=== PATIENT | male | born 1995 | race Caucasian/White ===

== ENCOUNTER 2020-01-12 20:40 | Emergency (ER) | payer BC, SELFPAY ==
[2020-01-12 20:45] VITALS: BP 111/78; PULSE 98; RESP 18; TEMP 38.1; O2SAT 98
--- NOTE | 2020-01-12 20:49 | ED_ITS ---
HPI - General Adult General Chief complaint: Upper Respiratory Symptoms Stated complaint: fever, states white spots on tonsils Time Seen by Provider: 01/12/20 20:48 History of Present Illness HPI narrative: 24-year-old otherwise healthy gentleman who has had an increasing sore throat and headache for the last 48 hours. Today he noticed there is a bit of exudate over his tonsils and came in for additional evaluation. Review of Systems Review of Systems Narrative: Positive for fevers, cough, headache Denies ? chest pain ? dyspnea ? wheezing ? abdominal pain ? change to bowel or bladder habits ? nausea vomiting ? skin changes ? rashes Patient History Medical History (Updated 01/12/20 @ 21:31 by Kourtney Valdes MD) Healthy adult (Acute) Social History Smoking Status: Current every day smoker Exam Narrative Exam Narrative: General: Healthy appearing, in no acute distress. Able to give a complete and coherent history. Well-nourished well-developed HEENT: Moist mucous membranes, normal sclera with reactive pupils, erythematous tonsils with minor amount of white exudate bilaterally, no peritonsillar abscess Neck: Minor cervical adenopathy, supple Respiratory: Lungs are clear to auscultation, no wheezing no rales no rhonchi. Full and symmetrical air movement Cardiac: Regular rate and rhythm no murmurs no bruits Abdomen: Soft nontender good bowel tones, no flank pain Skin: Warm and dry, no rashes Neurologic: Grossly neurologically intact with no obvious asymmetries or abnormalities Psych: Cooperative, appropriate insight and affect Initial Vital Signs Initial Vital Signs: Vital Signs Temperature 100.6 F H 01/12/20 20:45 Pulse Rate 98 H 01/12/20 20:45 Respiratory Rate 18 01/12/20 20:45 Blood Pressure 111/78 01/12/20 20:45 Pulse Oximetry 98 01/12/20 20:45 Course Vital Signs Vital signs: Vital Signs - 8 hr 01/12/20 20:45 Temperature 100.6 F H Pulse Rate 98 H Respiratory Rate 18 Blood Pressure 111/78 Pulse Oximetry 98 Medical Decision Making Medical Records Medical records reviewed: Yes I reviewed the patient's medical records. Lab Data Lab results reviewed: Yes I reviewed the patient's lab results. Labs: Point of Care Testing Rapid Strep A Negative Point of care testing: Point of Care Testing Rapid Strep A Negative MDM Narrative Medical decision making narrative: 48 hours of sore throat most consistent with viral pharyngitis. Rapid strep is negative. Covid19 testing is done. patient is safe for discharge Discharge Plan Departure Patient Disposition: Home Clinical Impression: Pharyngitis Qualifiers: Pharyngitis/tonsillitis etiology: unspecified etiology Qualified Code(s): J02.9 - Acute pharyngitis, unspecified Instructions: DI for Viral Pharyngitis Activity Restrictions/Additional Instructions: Thank you for coming in today Here rapid strep test was negative. You clearly do have enlarged tonsils and swollen lymph nodes. This is most likely a viral pharyngitis. There have been reports of coronavirus presenting with headache and sore throat so you have been tested for this. You will get a call when we have results back. In the meantime using 400 mg of ibuprofen (2 [id number] pills) and 1 Tylenol every 6 hours can be very helpful in controlling pain. CDC Guidelines for home isolation: - Stay away from others - Limit contact with pets and animals: If you must care for a pet, wash your hands before and after interacting with them - Wear a mask if you are sick - Cover your mouth and nose with a tissue when you cough or sneeze. Dispose of tissues in a lined trash can and wash your hands immediately with soap and water for at least 20 seconds. If soap and water are not available, clean hands with alcohol-based hand oil and gas well treatment operator that contains at least 60% alcohol. - Clean your hands often with soap and water for at least 20 seconds - Avoid touching your eyes, nose and mouth with unwashed hands - Do not share dishes, drinking glasses, cups, eating utensils, towels, or bedding with other people in your home. After using these items, wash them thoroughly with soap and water or put in the gas plant operator. - Clean high-touch surfaces in your isolation area (?sick room? and bathroom) every day; let a caregiver clean and disinfect high-touch surfaces in other areas of the home. Clean the area or item with soap and water or another detergent if it is dirty. Then, use a household disinfectant. Seek medical attention, but call first: - Seek medical care right away if your illness is worsening (for example, if you have difficulty breathing). - Call your doctor before going in: Before going to the doctor?s office or janna rgency room, call ahead and tell them your symptoms. They will tell you what to do. - If possible, put on a facemask before you enter the building. If you can?t put on a facemask, try to keep a safe distance from other people (at least 6 feet away). This will help protect the people in the office or waiting room. - Follow care instructions from your healthcare provider and local health department: Your local health authorities will give instructions on checking your symptoms and reporting information. Emergency warning signs for COVID-19: - Difficulty breathing or shortness of breath - Persistent pain or pressure in the chest - New confusion or inability to arouse - Bluish lips or face
[2020-01-15 01:23] LABS: COVID19 Sendout Not Detected (Not Detected)
== END 2020-01-12 21:32 | disposition home or self-care (01) ==
PROVIDERS: Emergency Provider Emergency Medicine
DX: J02.9 Acute pharyngitis, unspecified (principal); R51 Headache
CPT/HCPCS: 87635; 87880; 99282